=== PATIENT | male | born 1980 | race American Indian/Alaskan Native ===

== ENCOUNTER 2017-08-05 02:40 | Emergency (ER) | payer SELFPAY ==
[2017-08-05 02:45] VITALS: BP 141/78
[2017-08-05 03:59] LABS: Basophils % (Auto) 0.6 % (0.0-1.8); Eosinophils % (Auto) 0.5 % (0.0-4.3); Hematocrit 39.5 % (35.5-45.6); Hemoglobin 13.6 gm/dl (11.8-15.2); Lymphocytes # (Auto) 2.1 K/mm3 (1.2-5.4); Lymphocytes % (Auto) 24.9 % (13.4-35.0); Mean Corpuscular HGB Conc 35 % (32-34); Mean Corpuscular Hemoglobin 33 pg (28-32); Mean Corpuscular Volume 95 fl (84-94); Monocytes # (Auto) 0.8 K/mm3 (0.0-0.8); Monocytes % (Auto) 9.3 % (0.0-7.3); Platelet Count 273 K/mm3 (140-440); Red Blood Count 4.16 M/mm3 (3.65-5.03); Red Cell Distribution Width 12.6 % (13.2-15.2)
[2017-08-05 04:12] LABS: Alanine Aminotransferase 14 units/L (7-56); Albumin 4.4 g/dL (3.9-5); BUN/Creatinine Ratio 11; Blood Urea Nitrogen 9 mg/dL (9-20); Calcium 9.4 mg/dL (8.4-10.2); Hemolysis Index 7; Lipase 12 units/L (13-60)
[2017-08-05 09:36] LABS: Bacteria,Urine 1+ /HPF (Negative); Bilirubin,Urine NEG (Negative); Blood,Urine NEG (Negative); Calcium Oxalate Crystals,Urine 1+; Color,Urine Yellow (Yellow); Mucus,Urine 3+ /HPF; Nitrite,Urine NEG (Negative); Protein,Urine <15 mg/dL mg/dL (Negative)
[2017-08-05] MEDS ORDERED: ZOFRAN ODT PO ONE (10:52)
--- NOTE | 2017-08-05 10:59 | Emergency Department Report ---
HPI - General Chief Complaint: Abdominal Pain Time Seen by Provider: 08/05/17 10:48 - HPI HPI: The patient's 36-year-old male presents for evaluation of abdominal pain. The patient reports epigastric abdominal pain for the past 2 days, 7/10 in severity , crampy in quality, worsened with retching, and associated with nausea and multiple episodes of nonbilious, nonbloody emesis. The patient denies fever, chills, night sweats, diarrhea, blood in the stool, dark tarry stool, dysuria, hematuria, flank pain, genital discharge, inability to pass flatus. ED Past Medical Hx - Past Medical History Previous Medical History?: No - Surgical History Past Surgical History?: No - Social History Smoking Status: Current Every Day Smoker - Medications Home Medications: Home Medications Medication Instructions Recorded Confirmed Last Taken Type Ketoconazole 2% [Nizoral] 15 gm TP QDAY #1 tube 08/05/17 Unknown Rx Ondansetron [Zofran TAB] 4 mg PO Q8HR PRN #20 tablet 08/05/17 Unknown Rx traMADol [Ultram 50 MG tab] 50 mg PO Q6HR PRN #15 tablet 08/05/17 Unknown Rx ED Review of Systems ROS: Stated complaint: VOMITING Other details as noted in HPI Constitutional: denies: fever ENT: denies: throat or neck pain Respiratory: denies: cough, shortness of breath Cardiovascular: denies: chest pain Endocrine: denies unexplained weight loss or gain Gastrointestinal: reports: abdominal pain, nausea Genitourinary: denies: dysuria Musculoskeletal: denies: leg swelling Skin: denies: rash Neurological: denies: headache Hematological/Lymphatic: denies: easy bleeding or easy bruising Psych: denies sadness or hopelessness Physical Exam - Physical Exam Vital Signs: Vital Signs 08/05/17 08/05/17 02:41 03:10 Temperature 98.3 F 98.3 F Pulse Rate 92 H 88 Respiratory 18 18 Rate Blood Pressure 141/78 141/78 O2 Sat by Pulse 98 98 Oximetry Physical Exam: General: well-nourished, well-developed, no acute distress Head: Normocephalic, atraumatic Eyes: normal sclera ENT: Mucous membranes are pink and moist Neck: trachea midline, neck supple, No neck stiffness, no cervical adenopathy Respiratory: Breath sounds equal bilaterally, no wheezing, rales, or rhonchi Cardio: S1 and S2 present, no murmurs, rubs, gallops, capillary refill is brisk Abdomen: Normoactive bowel sounds, soft abdomen, epigastric abdominal pain, no rigidity, no guarding or rebound tenderness Musc: No pitting edema Skin: No rash Neuro: no facial drooping, normal speech Psych: Normal affect ED Course Vital Signs 08/05/17 08/05/17 02:41 03:10 Temperature 98.3 F 98.3 F Pulse Rate 92 H 88 Respiratory 18 18 Rate Blood Pressure 141/78 141/78 O2 Sat by Pulse 98 98 Oximetry ED Medical Decision Making - Lab Data Result diagrams: 08/05/17 03:29 08/05/17 03:29 - Medical Decision Making The patient was seen and examined by myself. The patient is placed on a property assessment monitor and continuous pulse ox. On initial evaluation, the patient was found to be in no distress. Evaluation orders are placed. The patient is given pain medicine and nausea medicine. Lab results were non-concerning including WBC, hemoglobin, hematocrit, electrolytes, renal function, LFTs, lipase, and urinalysis. The patient was reevaluated and reported that their symptoms were markedly improved. The patient is stable for discharge with outpatient follow-up. The patient is given follow-up and return instructions. The patient expressed understanding and agreed with the plan. The patient is discharged in stable condition. Critical care attestation.: If time is entered above; I have spent that time in minutes in the direct care of this critically ill patient, excluding procedure time. ED Disposition Clinical Impression: Abdominal pain, acute, epigastric, Nausea and vomiting in adult Disposition: DC-01 TO HOME OR SELFCARE Is pt being admited?: No Does the pt Need Aspirin: No Condition: Stable Instructions: Gastroenteritis (ED), Food Poisoning (ED), Nutrition Tips for Relief of Diarrhea (ED), Tinea Versicolor (ED), Tinea Corporis (ED) Referrals: JOSE MORRISON MD [Primary Care Provider] - 3-5 Days Time of Disposition: 10:53
== END 2017-08-05 11:01 | disposition home or self-care (01) ==
LOC: ED 02:40
DX: R10.13 Epigastric pain (principal); R11.2 Nausea with vomiting, unspecified; F17.200 Nicotine dependence, unspecified, uncomplicated
CPT/HCPCS: 36415; 80053; 81001; 83690; 85025; 99283

== ENCOUNTER 2017-10-31 02:25 | Emergency (ER) | payer SELFPAY ==
[2017-10-31 02:36] VITALS: BP 118/73
[2017-10-31] MEDS ORDERED: MOTRIN PO ONE (02:36)
[2017-10-31] MEDS ORDERED: TYLENOL ONE (02:37)
[2017-10-31] MEDS ORDERED: TYLENOL PO ONE (02:44)
--- NOTE | 2017-10-31 05:11 | Emergency Department Report ---
ED Rash HPI - HPI Chief Complaint: Skin Rash Stated Complaint: RASH IN GROIN Time Seen by Provider: 10/31/17 04:15 Duration: 1 Day Location: Lower Extremities Suspected Cause: Other Rash Symptoms: Yes Itching, No Facial Swelling, No Tongue/Oral Swelling, No Breathing Difficulties, No Choking Sensation, No Wheezing/Dyspnea, No Peeling, No Blistering, No Fever, No Lightheaded, No Malaise, No Myalgias Severity: mild Other History: Patient is a 36-year-old male who presents to rash in his genital /groin area times yesterday. Patient states he was E when he used to portable potty. Patient states while he was using a Water Splash on His Groin Area. Patient States Today He Is Experiencing Some Itching to That Area. He denies penile lesions, scrotum swelling or pain. ED Review of Systems ROS: Stated complaint: RASH IN GROIN Other details as noted in HPI Constitutional: denies: chills, fever Eyes: denies: eye pain, eye discharge, vision change ENT: denies: ear pain, throat pain Respiratory: denies: cough, shortness of breath, wheezing Cardiovascular: denies: chest pain, palpitations Endocrine: no symptoms reported Gastrointestinal: denies: abdominal pain, nausea, diarrhea Genitourinary: denies: urgency, dysuria Musculoskeletal: denies: back pain, joint swelling, arthralgia Skin: denies: rash, lesions Neurological: denies: headache, weakness, paresthesias Psychiatric: denies: anxiety, depression Hematological/Lymphatic: denies: easy bleeding, easy bruising ED Past Medical Hx - Past Medical History Previous Medical History?: No - Surgical History Past Surgical History?: No - Social History Smoking Status: Former Smoker Substance Use Type: Alcohol - Medications Home Medications: Home Medications Medication Instructions Recorded Confirmed Last Taken Type Ondansetron [Zofran TAB] 4 mg PO Q8HR PRN #20 tablet 08/05/17 Unknown Rx traMADol [Ultram 50 MG tab] 50 mg PO Q6HR PRN #15 tablet 08/05/17 Unknown Rx Ketoconazole 2% [Nizoral] 15 gm TP QDAY #1 tube 10/31/17 Unknown Rx Menthol/Zinc Oxide [Gold Villarreal 1 applic TP BID #1 powder 10/31/17 Unknown Rx Medicated Body Powd] Rash Exam - Exam General: Vital signs noted. No distress. Alert and acting appropriately. HEENT: No Periorbital Edema, No Conjuctival Injection, No Chemosis, No Perioral Edema, No Tongue Edema, No Uvular Edema, No Compromised Airway, No Drooling Lungs: Yes Good Air Exchange (Normal Breath Sounds), No Wheezes, No Ronchi, No Stridor, No Cough, No Labored Respirations, No Retractions, No Use of Accessory Muscles, No Other Abnormal Lung Sounds Heart: Yes Regular, No Murmur Front/Back of Body, Lg (Color): 1 - hypopigmented raised rash in bilateral groin, no bleed, no lesions. Skin: Yes Urticarial Rash, Yes Maculopapular Rash, No Morbilliform rash, No Bulla(e), No Excoriations, No Weeping, No Tenderness, No Erythema, No Edema, No Encrustations, No Other ED Course Vital Signs 10/31/17 10/31/17 02:32 02:44 Temperature 98.2 F Pulse Rate 75 Respiratory 18 18 Rate Blood Pressure 118/73 O2 Sat by Pulse 98 Oximetry Critical care attestation.: If time is entered above; I have spent that time in minutes in the direct care of this critically ill patient, excluding procedure time. ED Disposition Clinical Impression: Jock itch Contact dermatitis Qualifiers: Contact dermatitis type: irritant Disposition: DC-01 TO HOME OR SELFCARE Is pt being admited?: No Does the pt Need Aspirin: No Condition: Stable Instructions: Jock Itch (ED), Terbinafine (On the skin), Contact Dermatitis (ED ) Additional Instructions: Make sure to follow up with the primary care physician as discussed. Take all your medications as you've been prescribed. If you have any worsening symptoms or develop new symptoms please return to ED immediately. Prescriptions: Ketoconazole 2% [Nizoral] 15 gm TP QDAY #1 tube Menthol/Zinc Oxide [Gold Villarreal Medicated Body Powd] 1 applic TP BID #1 powder Referrals: PRIMARY CARE, [Primary Care Provider] - 3-5 Days [facility] [Outside] - 3-5 Days [facility] [Outside] - 3-5 Days [facility] [Outside] - 3-5 Days Forms: Work/School Release Form(ED) Time of Disposition: 05:44
== END 2017-10-31 05:45 | disposition home or self-care (01) ==
LOC: ED 02:25
DX: B35.6 Tinea cruris (principal); L25.9 Unspecified contact dermatitis, unspecified cause; Z87.891 Personal history of nicotine dependence
CPT/HCPCS: 99282